=== PATIENT | female | born 1945 | race Caucasian/White ===

== ENCOUNTER 2024-03-16 07:03 | Day surgery (SDC) | payer OTHER ==
[2024-03-11 15:32] VITALS: BMI 23.9
[2024-03-16] MEDS ORDERED: PROPOFOL 160 ML ONE (07:32)
[2024-03-16] MEDS ORDERED: LIDOCAINE HCL/PF 2% SDV 5ML VIAL ONE (07:32)
[2024-03-16 08:38] VITALS: TEMP 96.8
[2024-03-16 08:50] VITALS: BP 107/60; PULSE 82; RESP 19
== END 2024-03-16 09:00 | disposition home or self-care (01) ==
LOC: FASU-ENDO 07:03
PROVIDERS: ATTEND Internal Medicine Gastroenterology
PROC: 0DJD8ZZ Inspection of Lower Intestinal Tract, Via Natural or Artificial Opening Endoscopic (ICD-10-PCS; principal; 2024-03-16 08:13)
DX: Z12.11 Encounter for screening for malignant neoplasm of colon (principal)